=== PATIENT | female | born 1995 | race Caucasian/White ===

== ENCOUNTER 2017-12-21 09:58 | Emergency (ER) | payer MEDICAID ==
[~2017-12-21] VITALS: Ht 149.9 cm; Wt 40.5 kg
[2017-12-21 10:16] VITALS: Ht 149.9 cm; Wt 40.5 kg
[2017-12-21 11:10] LABS: APPEARANCE CLEAR (CLEAR); BILIRUBIN NEGATIVE (NEGATIVE); COLOR YELLOW (YELLOW); GLUCOSE NEGATIVE (NEGATIVE); KETONE NEGATIVE (NEGATIVE); NITRITE NEGATIVE (NEGATIVE); PROTEIN TRACE mg/dL (NEGATIVE); UROBILINOGEN NORMAL (NORMAL)
[2017-12-21 11:11] LABS: BACTERIA FEW /hpf (NONE SEEN); EPITHELIAL CELLS 0-5 /hpf (0-5); RED CELLS - URINE 0-5 /hpf (0-5); WHITE CELLS - URINE 0-5 /hpf (0-5)
[2017-12-21 11:12] LABS: ALBUMIN 3.3 g/dL (3.4-5.0); ALKALINE PHOSPHATASE 53 U/L (46-116); ALT (SGPT) 15 U/L (10-68); BILIRUBIN - TOTAL 0.31 mg/dL (0.2-1.3); CALC OSMOLALITY 268 mosm/kg (275-300); CARBON DIOXIDE 26.9 mmol/L (21.0-32.0); CHLORIDE - SERUM 102 mmol/L (98-107); CREATININE - SERUM 0.6 mg/dL (0.6-1.3); GLUCOSE 87 mg/dL (74-106); POTASSIUM - SERUM 4.4 mmol/L (3.5-5.1); PROTEIN - SERUM 7.3 g/dL (6.4-8.2); SODIUM 136 mmol/L (136-145); UREA NITROGEN 7 mg/dL (7-18); eGFR NON AFRICAN AMERICAN > 90 mL/min (90-120)
[2017-12-21 11:16] LABS: RBC 4.98 10x6/uL (4.00-5.40); WBC 6.1 10x3/uL (4.8-10.8)
[2017-12-21 11:17] LABS: EOSINOPHILS 1 % (0-7); HEMATOCRIT 43.4 % (36.0-48.0); LYMPHOCYTES 17 % (15-50); MCH 30.1 pg (26.0-34.0); MCHC 34.6 g/dL (31.0-37.0); MCV 87.1 fL (80.0-100.0); MONOCYTES 7 % (2-11); NEUTROPHILS 75 % (40-80); PLATELET COUNT 183 10x3/uL (130-400); RDW 14.6 % (11.5-14.5)
[2017-12-21 11:18] LABS: BASOPHILS 0 % (0-2)
[2017-12-21 11:31] LABS: HCG - QUANTITATIVE (MATERNAL) 212081 mIU/mL
[2017-12-21 12:20] VITALS: BP 102/60
== END 2017-12-21 12:24 | disposition home or self-care (01) ==
LOC: D.ER 09:58
PROVIDERS: Family Medicine
DX: O26.899 Other specified pregnancy related conditions, unspecified trimester (principal); Z3A.00 Weeks of gestation of pregnancy not specified; S01.111A Laceration without foreign body of right eyelid and periocular area, initial encounter; W18.30XA Fall on same level, unspecified, initial encounter; Y93.89 Activity, other specified; Y92.019 Unspecified place in single-family (private) house as the place of occurrence of the external cause; R42 Dizziness and giddiness